=== PATIENT | male | born 1985 | race Two or more races ===

== ENCOUNTER 2018-08-03 05:45 | Day surgery (SDC) | payer OTHER ==
--- NOTE | 2018-08-02 18:54 | Pre-Procedure Note/Attestation ---
Pre-Procedure Note/Attestation Complete Prior to Procedure Planned Procedure: right Procedure Narrative: Right cheek scar revision Indications for Procedure Pre-Operative Diagnosis: Cicatrix right cheek Attestation I attest that I discussed the nature of the procedure; its benefits; risks and complications; and alternatives (and the risks and benefits of such alternatives ), prior to the procedure, with the patient (or the patient's legal petroleum products sales representative). I attest that, if there was a reasonable possibility of needing a blood transfusion, the patient (or the patient's legal petroleum products sales representative) was given the [facility] standardized written summary, pursuant to the Naveen Pamela Blood Safety Act ([place] Health and Safety Code # 1645, as amended). I attest that I re-evaluated the patient just prior to the surgery and that there has been no change in the patient's H&P,which was done by his PMD, reviewed by me and approved. Will sign once uploaded. Perfecto Reina MD Aug 02, 2018 18:54
--- NOTE | 2018-08-02 18:56 | Brief Operative Note ---
Immediate Post Operative Note Operative Note Chief Complaint: cicatrix righ cheek Pre-op Diagnosis: Cicatrix right cheek Procedure: Excision right cheek cicatrix with reconstruction. Post-op Diagnosis: same as pre-op Surgeon: Perfecto Reina Director Of Orthopedics: none Additional Surgeons: none Anesthesiologist: Yadira Anesthesia: MAC Specimen: yes - cicatrix right cheek Complications: none Condition: stable Fluids: D5LR 500 cc Estimated Blood Loss: volume - 5 cc Drains: none Packing: none Implant(s) used?: No Perfecto Reina MD Aug 02, 2018 18:56
--- NOTE | 2018-08-02 18:59 | Discharge Instructions ---
Discharge Instructions Discharge Instructions Follow up with: Dr. Reina next week-08/10/18 1 PM Diet: regular Resume Normal Activity?: No Activity: light activity Pneumonia Vaccine: pt refused vaccine Influenza Vaccine (Jul to Dec): pt refused vaccine Follow Up Orders Pt has printed instructions which were reviewed in Syriac with him while in the office. Post op meds-Keflex and Tylenol-he has Rx already. Return to Work/School on: Aug 16, 2018 Special Instructions Ice to right cheek x 48 hours For Surgical Patients Dressing Care: keep dry and clean May shower: Yes For Congestive Heart Failure Reminder Report to your physician any weight gain of 5 pounds or more in one week. Perfecto Reina MD Aug 02, 2018 18:59
[~2018-08-03] VITALS: Ht 165.1 cm; Wt 97.5 kg
[2018-08-03] VITALS (9 sets, daily range): BP systolic 108–122; BP diastolic 71–81
[~2018-08-03 05:45] MED LIST: IBUPROFEN600 MG ORAL; TEMAZEPAM15 MG ORAL; VENLAFAXINE H37.5 M1 ORAL
[2018-08-03] MEDS ORDERED: Dexamethasone 4mg/ml vial IVP ONE (07:00)
[2018-08-03] MEDS ORDERED: fentaNYL 100 mcg/2 mL IV ONE (07:10)
[2018-08-03] MEDS ORDERED: Midazolam 2mg/2ml Inj ONE (07:10)
[2018-08-03] MEDS ORDERED: Lidocaine 1% MPF 10mg/ml 5ml ONE (07:11)
[2018-08-03] MEDS ORDERED: ceFAZolin sod 1 GM in D5W 55 ML IV ONE (07:15)
[2018-08-03] MEDS ORDERED: Lidocaine 1% 10mg/ml/Epi 0.005mg/ml 30ml vial INJ ONE (07:17)
[2018-08-03] MEDS ORDERED: Bacitracin Oint 15gm Tube TOPIC ONE (07:17)
[2018-08-03] MEDS ORDERED: Sterile Water Irrig 1000ml IRRIG ONE (07:30)
[2018-08-03] MEDS ORDERED: LR 1000ml ONE (07:30)
[2018-08-03] MEDS ORDERED: NS Irrig 1000ml ONE (07:30)
[2018-08-03] MEDS ORDERED: Propofol 200mg/20ml IV ONE (07:43)
[2018-08-03] MEDS ORDERED: Dexamethasone 4mg/ml vial ONE (07:43)
[2018-08-03] MEDS ORDERED: LR 1000ml 1,000 ML IVLG SCH (07:46)
[2018-08-03] MEDS ORDERED: DiphenhydrAMINE 50mg/ml Inj IVP PRN (08:00)
[2018-08-03] MEDS ORDERED: Midazolam 2mg/2ml Inj IVP PRN (08:00)
[2018-08-03] MEDS ORDERED: Meperidine 50mg/ml Inj(FOR RIGORS ONLY) IVP PRN (08:00)
--- NOTE | 2018-08-03 08:19 | Anethesia Preoperative Eval ---
Anesthesia Pre-op PMH/ROS General Date of Evaluation: Aug 03, 2018 Time of Evaluation: 07:20 Anesthesiologist: Yadira ASA Score: ASA 2 Mallampati Score Class I : Soft palate, uvula, fauces, pillars visible Class II: Soft palate, uvula, fauces visible Class III: Soft palate, base of uvula visible Class IV: Only hard plate visible Mallampati Classification: Class III Surgeon: Nuno Diagnosis: Right facial scar Surgical Procedure: Scar revision Family History: no anesthesia problems Allergies: Coded Allergies: No Known Allergies (Unverified , 08/02/18) Medications: see eMAR Patient NPO?: Yes NPO Date: Aug 02, 2018 NPO Time: 20:00 Past Medical History Cardiovascular: Denies: HTN, CAD, [place], valve dz, arrhythmia, other Pulmonary: Denies: asthma, COPD, JEANNINE, other Gastrointestinal/Genitourinary: Denies: GERD, CRI, ESRD, other Neurologic/Psychiatric: Reports: depression/anxiety; Denies: dementia, CVA, TIA, other Endocrine: Denies: DM, hypothyroidism, steroids, other HEENT: Denies: cataract (L), cataract (R), glaucoma, [place] (L), [place] (R), other Hematology/Immune: Denies: anemia, DVT, bleeding disorder, other Musculoskeletal/Integumentary: Denies: OA, RA, DJD, DDD, edema, other Other: obesity PMH Narrative: Obesity, depression/anxiety PSxH Narrative: Facial surgery resulting in current scar Anesthesia Pre-op Phys. Exam Physician Exam Last Vital Signs Date Time Temp Pulse Resp B/P (MAP) Pulse Ox O2 Delivery O2 Flow Rate FiO2 08/03/18 06:34 Room Air 08/03/18 06:27 97.1 71 18 122/81 96 97.1 Constitutional: NAD Neurologic: CN 2-12 intact Cardiovascular: RRR, no M/R/G Respiratory: CTA Gastrointestinal: S/NT/ND Airway Exam Mallampati Score: Class III MO: full ROM: full Teeth: intact Anesthesia Pre-op A/P Labs WNL Studies Pre-op Studies: EKG - NSR Risk Assessment & Plan Assessment: Obese male for right facial scar revision Plan: MAC, TIVA Status Change Before Surgery: No Pre-Antibiotics Drug: Ancef Given Within 1 Hr of Incision: Yes Time Given: 07:50 Naveen May MD Aug 03, 2018 08:19
--- NOTE | 2018-08-03 08:20 | Immediate Post-Op Evaluation ---
Immediate Post-Op Evalulation Immediate Post-Op Evalulation Procedure: Right facial scar revision Date of Evaluation: Aug 03, 2018 Time of Evaluation: 07:50 IV Fluids: 700 Estimated Blood Loss: 5 Blood Pressure Systolic: 117 Blood Pressure Diastolic: 80 Pulse Rate: 68 Respiratory Rate: 18 O2 Sat by Pulse Oximetry: 96 Temperature (Fahrenheit): 97.0 Pain Score (1-10): 0 Nausea: No Vomiting: No Complications No complication Patient Status: awake, patent, none Hydration Status: adequate Drug: Ancef Given Within 1 Hr of Incision: Yes Time Given: 07:50 Naveen May MD Aug 03, 2018 08:20
--- NOTE | 2018-08-03 08:48 | 48 Hour Post Anesthesia Eval ---
Post Anesthesia Evaluation Procedure: Right facial scar revision Date of Evaluation: Aug 03, 2018 Time of Evaluation: 09:11 Blood Pressure Systolic: 116 0: 79 Pulse Rate: 67 Respiratory Rate: 17 O2 Sat by Pulse Oximetry: 96 Airway: patent Nausea: No Vomiting: No Pain Intensity: 0 Hydration Status: adequate Cardiopulmonary Status: Stable Mental Status/LOC: patient returned to baseline Follow-up Care/Observations: As per surgery Post-Anesthesia Complications: No anesthetic complication Follow-up care needed: N/A Naveen May MD Aug 03, 2018 08:48
--- NOTE | 2018-08-03 13:31 | Operative Note - Dictated ---
DATE OF OPERATION: 08/03/2018 SURGEON: Perfecto Reina M.D. PHYSICIAN [facility] MEDICINE: None. ANESTHESIOLOGIST: Naveen May M.D. ANESTHESIA: MAC anesthesia with an additional 10 mL of 1% lidocaine with 1:100,000 epinephrine injected in the right cheek area. INDICATION FOR SURGERY: The patient was injured at work, had a repair in the emergency room with scar tissue in his right cheek. He wishes to have this scar revised. He failed injections with Kenalog twice to shrink the scar tissue down. PREOPERATIVE DIAGNOSIS: Cicatrix, right cheek. POSTOPERATIVE DIAGNOSIS: Cicatrix, right cheek. FINDINGS: Scar tissue under the skin, right mid cheek, which was excised, it was about 2 cm x 1 cm. PROCEDURE: 1. Excision of cicatrix, right cheek. 2. Multilayered advancement flap closure. TECHNIQUE: The patient prepped and draped in a sterile manner. A time-out was performed. All agreed as to the equipment and personnel and procedure to be done. I then injected 1% lidocaine with 1:100,000 epinephrine 10 mL as noted above. I then proceeded to make an incision with a #15 blade around the existing scar. This was sent for gross pathology. I then dissected with a small sharp scissors around the scar tissue, which was hard and was able to elevate this and remove it. Size noted above. Area was irrigated with Betadine. I then placed four 4-0 plane sutures subcutaneously to approximate the deep margins. I then ran a horizontal 6-0 Prolene mattress suture from the medial edge of the nares to the lateral edge. Tissue glue was placed over this. A small 2 x 2 was cotton folded over, Tegaderm placed over this. Sponge and needle count was correct. ESTIMATED BLOOD LOSS: 5 mL. COUNTS: None. DRAINS: None. Followup is in my office next week. The patient has pain medications and antibiotic to take postop. Perfecto Reina M.D. DR: PURVI JOB#: [id number] CC:
== END 2018-08-03 10:00 | disposition home or self-care (01) ==
LOC: SUR 05:45
DX: L90.5 Scar conditions and fibrosis of skin (principal); F32.9 Major depressive disorder, single episode, unspecified; F41.9 Anxiety disorder, unspecified; E66.9 Obesity, unspecified
CPT/HCPCS: 11442; 12051; J0690; J1100; J2250; J2704; J3010; 94003; 94150